=== PATIENT | male | born 1980 | race Caucasian/White ===

== ENCOUNTER → 2019-07-12 | Outpatient (CLI) | payer OTHER ==
--- NOTE | 2019-07-12 11:04 | Diagnostic Imaging Report ---
EXAMINATION: CHEST (PA AND LATERAL). CLINICAL INDICATION: 39-year-old male, difficulty breathing. COMPARISON: None. FINDINGS: The heart size and mediastinal contours are unremarkable. There is no identified pneumothorax. There is no pleural effusion. There is no identified focal airspace consolidation. IMPRESSION: No identified acute cardiopulmonary abnormality. Dictated by: Dictated on workstation # [id number]
== END ==
LOC: RAD 10:44
PROVIDERS: ATTEND Nurse Practitioner Family
DX: G47.33 Obstructive sleep apnea (adult) (pediatric) (principal); J45.909 Unspecified asthma, uncomplicated
CPT/HCPCS: 71046

== ENCOUNTER → 2019-07-28 | Outpatient (CLI) | payer OTHER ==
[~2019-07-28] MED LIST: METHACHOLINE CHLORIDE 100MG/VIAL IH ONE; RT-ALBUTEROL SULF 2.5 MG/3 ML PRE-MIX VIAL INH ONE
== END ==
LOC: EDUNIT# 06-23 11:56 → RT 13:56
DX: R06.00 Dyspnea, unspecified (principal)
CPT/HCPCS: 94070; 95070

== ENCOUNTER 2019-11-08 21:18 | Emergency (ER) | payer OTHER, BC ==
[~2019-11-08] VITALS: Ht 180.3 cm; Wt 97.5 kg
--- OUTSIDE RECORDS SUMMARY | 2019-11-08 21:23 | XMS REPORT ---
Author Author Jaspreet RICO Organization [facility] Address [address] [place] [address] Care Team Providers Care Infection Control Preventionist Name Role Phone BRET RICO Unavailable PROBLEMS Type Condition ICD9-CM Code AUB44-EX Code Onset Dates Condition S tatus SNOMED Code Problem Mild intermittent asthma with exacerbation J45.21 Active [id number] ALLERGIES No Known Allergies ENCOUNTERS Encounter Location Date Diagnosis [facility] [address] [place] [address] Sep, Mild intermittent asthma with exacerbati on J45.21 [facility] [id number] [place] [phone] Jun, [facility] [address] [facility] [id number] [place] [phone] Feb, [place] [address] [place] [id number] [place] [phone] Dec, IMMUNIZATIONS Vaccine Route Administration Date Status SOLUMEDROL (UP TO 125 MG) IM Intramuscular September 18, 2018 Admin istered SOCIAL HISTORY Never Assessed REASON FOR VISIT coughing, Sinus congestion, wheezing ...elamfu/ma PLAN OF CARE Activity Details Follow Up prn Reason: Future/Pending Procedure NEB/MDI RX INITIAL Future/Pending Procedure NEBULIZER TREATMENT VITAL SIGNS Height 70 in 2018-09-18 Weight 210 lbs 2018-09-18 Temperature 98.7 degrees Fahrenheit 2018-09-18 Heart Rate 64 bpm 2018-09-18 Respiratory Rate 20 2018-09-18 Oximetry 94 % 2018-09-18 BMI 30.13 kg/m2 2018-09-18 Blood pressure systolic 108 mmHg 2018-09-18 Blood pressure diastolic 62 mmHg 2018-09-18 MEDICATIONS Medication Instructions Dosage Frequency Start Date End Date Duration S tatus Ibuprofen 600 MG Active Acetaminophen-Codeine #2 300-15 MG Active Pantoprazole Sodium 20 MG Active DuoNeb Sep, Active Topiramate 50 MG Active Albuterol Sulfate HFA 108 (90 Base) MCG/ACT Inhalation every 6 hrs 2 puffs as needed 6h Active Cetirizine HCl 10 MG Act didier Duloxetine HCl 60 MG Act didier Fluticasone Propionate 50 MCG/ACT Active Vitamin D3 3000 UNIT Act didier Magnesium Oxide 400 (241.3 Mg) MG Active RESULTS No Results PROCEDURES Procedure Date Ordered Result Body Site THER/PROPH/DIAG INJ, SC/IM September 18, 2018 SOLUMEDROL (UP TO 125 MG) September 18, 2018 NEB/MDI RX INITIAL September 18, 2018 INSTRUCTIONS MEDICATIONS ADMINISTERED No Known Medications MEDICAL (GENERAL) HISTORY Type Description Date Medical History asthma Surgical History wisdom teeth extraction Surgical History tonsillectomy and adenoidectomy Surgical History appendectomy Surgical History rhinoplasty x3 Hospitalization History see surgeries
--- OUTSIDE RECORDS SUMMARY | 2019-11-08 21:23 | XMS REPORT | Continuity of Care Document ---
Author Organization Unknown Address Unknown Phone Unavailable Allergies Active Description Code Type Severity Reaction Onset Reported/Identified Relationship to Patient Clinical Status Yes No Known Drug Allergies [id number] Drug Allergy Unknown N/A 07/28/2019 Medications There is no data. Problems Date Dx Coded Attending Type Code Diagnosis Diagnosed By 07/13/2019 LISA AGUIRRE APRN Ot G47.33 OBSTRUCTIVE SLEEP APNEA (ADULT) (PEDIATR 07/13/2019 LISA AGUIRRE APRN Ot J45.909 UNSPECIFIED ASTHMA, UNCOMPLICATED 08/02/2019 DAHIANA YI MD Ot R06.00 DYSPNEA, UNSPECIFIED 08/02/2019 DAHIANA YI MD Ot R06.00 DYSPNEA, UNSPECIFIED 08/04/2019 DAHIANA YI MD Ot R06.00 DYSPNEA, UNSPECIFIED Procedures There is no data. Results There is no data. Encounters ACCT No. Visit Date/Time Discharge Status Pt. Type Provider Facility Loc./Unit Complaint [id number] 07/28/2019 13:56:00 020 23:59:59 [facility] Outpatient DAHIANA YI MD [facility] RT DYSPNEA [id number] 07/12/2019 10:44:00 020 23:59:59 [facility] Outpatient LISA AGUIRRE APRN [facility] RAD [id number] 11/08/2019 21:20:[address] Emergency TERE SANTIAGO DO [facility] ER FS DOG BITE ON LEFT HAND
[2019-11-08 21:27] VITALS: BP 147/91
--- NOTE | 2019-11-08 21:37 | ED Integumentary General ---
General Chief Complaint: Bite-Animal/Human/Insect Stated Complaint: DOG BITE ON LEFT HAND Source: patient Exam Limitations: no limitations History of Present Illness Date Seen by Provider: November 08, 2019 Time Seen by Provider: 21:15 Initial Comments The patient is a pleasant 39-year-old male presents for evaluation of a dog bite to the left hand. He states that he is currently watching a dog for a friend and the dog was outside on a leash barking and when he walked around a corner of the house the dog appeared to be scared and bit him on the hand. The dog is from a breeder and is up-to-date with immunizations and had been behaving normally. The patient is in the and is up-to-date with immunizations, stating that he received immunizations in July including tetanus. He has some difficulty/pain when trying to bend the left index finger but is able to do so. He has no other complaints at this time. The owners of the dog are currently speaking with the patient on the phone and stated they will self quarantine the dog for 10 days and hurt he spoke with the display card writer. Severity: mild Location: hands (left 2nd finger) Associated Symptoms: denies symptoms Allergies and Home Medications Allergies Coded Allergies: No Known Drug Allergies (Unverified , 07/28/19) Patient Home Medication List Home Medication List Reviewed: Yes Review of Systems Review of Systems Constitutional: no symptoms reported EENTM: no symptoms reported Respiratory: no symptoms reported Cardiovascular: no symptoms reported Gastrointestinal: no symptoms reported Genitourinary: no symptoms reported Musculoskeletal: other (dog bite to left hand) Skin: other (dog bite to left hand) Psychiatric/Neurological: No Symptoms Reported Endocrine: No Symptoms Reported Hematologic/Lymphatic: No Symptoms Reported All Other Systems Reviewed Negative Unless Noted: Yes Past Znddfik-Avwhqj-Edyruc Hx Past Med/Social Hx: Reviewed Nursing Past Med/Soc Hx Patient Social History Recent Foreign Travel: No Contact w/Someone Who Travel: No Physical Exam Vital Signs Capillary Refill : General Appearance: WD/WN, no apparent distress HEENT: PERRL/EOMI, normal ENT inspection Cardiovascular: regular rate, rhythm, no edema, no JVD Respiratory: lungs clear, normal breath sounds, no respiratory distress, no accessory muscle use Extremities: other (left hand with three small puncture wounds consistent with stated dog bite, one to webbing between 2nd and 3rd digits, one to medial/flexor surface of proximal phalynx, and one to extensor surface of proximal phalynx, no active bleeding, mild swelling) Neurologic/Psychiatric: neuropsychologist II-XII nml as tested, no motor/sensory deficits, alert, normal mood/affect, oriented x 3 Skin: normal color, warm/dry Progress/Results/Core Measures Progress Progress Note : Progress Note @2140 - patient declines imaging stating that he does not believe his fingers broken. He is up-to-date with tetanus. The dog is thought to be up-to-date with rabies and as a precaution is going to be quarantined for 10 days. The dog has been behaving normally and was startled tonight. The patient will go home with a prescription for antibiotics and has been advised to follow-up with the orthopedic physician provided if he has difficulty fully flexing and extending the left second digit. The patient expresses verbal understanding and agreement with the plan and is stable for discharge. Departure Impression Primary Impression: Dog bite Disposition: 01 HOME, SELF-CARE Condition: Stable Departure-Patient Inst. Decision time for Depature: 21:48 Referrals: TERRY MARK MD (PCP/Family) Primary Care Physician Patient Instructions: Animal Bites (DC) Add. Discharge Instructions: Apply Neosporin or similar antibiotic topically twice daily to your wounds. Take the prescribed antibiotic as directed. If he continued to have pain and/or problems fully bending your finger is important that you follow-up with orthopedics within the next week. Return to the emergency department immediately for new or worsening symptoms. Scripts Amoxicillin/Potassium Clav (Augmentin 875-125 Tablet) 1 Each Tablet 1 EACH PO BID for 10 Days, #20 TAB 0 Refills Prov: JACK CARRANZA DO 11/08/19 JACK CARRANZA DO November 08, 2019 21:37
[2019-11-08] MEDS ORDERED: AMOX-358 PO (21:50)
== END 2019-11-08 22:02 | disposition home or self-care (01) ==
LOC: EDUNIT# 21:18 → ER FS 21:20
DX: S61.432A Puncture wound without foreign body of left hand, initial encounter (principal); W54.0XXA Bitten by dog, initial encounter

== ENCOUNTER 2022-08-02 17:09 | Emergency (ER) | payer BC, OTHER ==
[~2022-08-02 17:09] MED LIST changes: +AMOX-358 PO; -METHACHOLINE CHLORIDE 100MG/VIAL IH ONE; -RT-ALBUTEROL SULF 2.5 MG/3 ML PRE-MIX VIAL INH ONE
[2022-08-02] MEDS ORDERED: NS IV 1000 ML 1,000 ML IV STA ×2 (17:23→18:19)
[2022-08-02] MEDS ORDERED: RT-ALBUTEROL/IPRATROPIUM 3 ML (DUONEB) VIAL INH STA (17:23)
[2022-08-02] MEDS ORDERED: ONDANSETRON 4 MG/2 ML (SDV) Z0FRAN IVP STA (17:26)
[2022-08-02 17:28] LABS: BASOPHILS # (AUTO) 0.1 10^3/uL (0.0-0.1); BASOPHILS % (AUTO) 1 % (0-10); EOSINOPHILS # (AUTO) 0.5 10^3/uL (0.0-0.3); EOSINOPHILS % (AUTO) 3 % (0-10); HEMATOCRIT 44 % (40-54); HEMOGLOBIN 15.8 g/dL (13.3-17.7); LYMPHOCYTES # (AUTO) 3.6 10^3/uL (1.0-4.0); LYMPHOCYTES % (AUTO) 22 % (12-44); MEAN CORPUSCULAR HEMOGLOBIN 32 pg (25-34); MEAN CORPUSCULAR HGB CONC 36 g/dL (32-36); MEAN CORPUSCULAR VOLUME 89 fL (80-99); MONOCYTES # (AUTO) 1.4 10^3/uL (0.0-1.0); MONOCYTES % (AUTO) 9 % (0-12); NEUTROPHILS # (AUTO) 10.6 10^3/uL (1.8-7.8); NEUTROPHILS % (AUTO) 65 % (42-75); PLATELET COUNT 269 10^3/uL (130-400); WHITE BLOOD COUNT 16.3 10^3/uL (4.3-11.0)
--- NOTE | 2022-08-02 17:35 | Diagnostic Imaging Report ---
INDICATION: cough, short of breath x 2 days. TECHNIQUE: Single view chest 5:24 PM. CORRELATION STUDY: 07/12/2019 FINDINGS: The heart size, mediastinal configuration and pulmonary vascularity are within normal limits. The lungs are clear with no consolidating infiltrate. There is no significant effusion or pneumothorax. IMPRESSION: 1. Negative appearing single view chest. Dictated by: Dictated on workstation # [id number]
[2022-08-02 17:51] LABS: ALBUMIN 4.5 GM/DL (3.2-4.5); BILIRUBIN,TOTAL 0.5 MG/DL (0.1-1.0); CALCIUM 9.8 MG/DL (8.5-10.1); CREATININE SERUM 1.07 MG/DL (0.60-1.30)
--- NOTE | 2022-08-02 17:52 | ED Cough/URI ---
General Chief Complaint: Respiratory Problems Stated Complaint: SOB; ELEV HR & BP Nursing Triage Note: Patient presents to the ED with c/o shortness of breath, elevated heart rate, and cough. Family report patient has had decreased appetite, cough, sore throat, and shortness of breath for the past 2 days. Was seen at [facility] prior to arriving at the ED and prescribed steriod and antibiotic. Came to the ED due to feeling like his "throat was closing up and shortness of breath." His reports heart rate in the 130s and elevated blood pressure. Source: patient, spouse (Independent historian for patient as he has TBI and memory issues as well as short of breath with cough that makes it hard to obtain history and information from him. ) History of Present Illness Date Seen by Provider: Aug 02, 2022 Time Seen by Provider: 17:12 Initial Comments 42-year-old male presenting with his to the emergency department. Most of the history obtained from the as an independent historian as the patient was complaining of being too short of breath as well as having memory issues from traumatic brain injury to be able to consistently answer questions. He has been having increased cough with shortness of breath, sore throat, decreased appetite, fast heart rate, high blood pressure in the last 2 days. All the family members at home have been sick and has had some form of viral illness. He does have a history of asthma and restrictive airway disease from being exposed to inhalants while in the . He has PTSD as well as traumatic brain injury, asthma, recurrent ear infections. He has had a low-grade temperature but not been able to keep any Tylenol or ibuprofen down to help with that. He was seen at the urgent care this afternoon and they had prescribed steroid and an antibiotic but he has not received any of those as he felt worse after getting home. However he was feeling worse after he got home and continued to vomit and complained that he felt like his throat was closing up with the shortness of breath so they rushed to the emergency department to be seen. He follows with [facility] but has not been able to get a local [facility] provider to help manage his care since he moved to the area from . Timing/Duration: yesterday, getting worse Severity/Quality: severe, dry cough Prior Episodes/Possible Cause: frequent episodes, chronic episodes Modifying Factors: Worse With Activity, Worse With Coughing Associated Symptoms: cough, earache, fever/chills, headache, lightheadedness, muscle aches, nasal congestion, nasal drainage, shortness of breath, sore throat, wheezing Allergies and Home Medications Allergies Coded Allergies: No Known Drug Allergies (Unverified , 07/28/19) Patient Home Medication List Home Medication List Reviewed: Yes Amoxicillin/Potassium Clav (Augmentin 875-125 Tablet) 1 Each Tablet, 1 EACH PO BID Prescribed by: JACK CARRANZA on 11/08/192149 Benzonatate (Benzonatate) 200 Mg Capsule, 200 MG PO TID PRN for COUGH Prescribed by: INDIO SKY on 08/02/221951 Ondansetron (Ondansetron Odt) 4 Mg Tab.rapdis, 4 MG PO Q6H PRN for NAUSEA/VOMITING Prescribed by: INDIO SKY on 08/02/221951 Review of Systems Review of Systems Constitutional: see HPI EENTM: see HPI Respiratory: see HPI Cardiovascular: see HPI, palpitations Gastrointestinal: see HPI, nausea, vomiting Genitourinary: No dysuria Musculoskeletal: muscle pain (generalized body aches) Skin: No rash Psychiatric/Neurological: Headache Past Hypgdts-Zucwus-Yjjixx Hx Patient Social History Tobacco Use?: No Use of E-Cig and/or Vaping dev: No Substance use?: No Alcohol Use?: No Pt feels they are or have been: No Immunizations Up To Date Influenza Vaccine Up-to-Date: Yes; Up-to-Date First/Initial COVID19 Vaccinat: DENIES Seasonal Allergies Seasonal Allergies: No Past Medical History Surgery/Hospitalization HX: COPD; TBI; PTSD; Spinal Fx; Arthitis; DDD; Retracted ear drums; Memory problems; Cyst removal; BMT; Appy; Rhinoplasty Surgeries: Yes (NOSE X3 FROM FX, WISDOM TEETH, CYST REMOVALS) Appendectomy, Tonsillectomy, Vasectomy Respiratory: Yes Asthma Cardiac: No Neurological: Yes (IED EXPLOSION) Traumatic Brain Injury Genitourinary: No Gastrointestinal: No Musculoskeletal: Yes Degenerate Disk Disease, Back Injury Endocrine: No Hearing Impairment: Hard of Hearing Cancer: No Psychosocial: Yes Anxiety, PTSD Integumentary: No Blood Disorders: No Physical Exam Vital Signs - First Documented 08/02/22 08/02/22 17:27 19:49 Temp 38.1 Pulse 120 Resp 16 B/P (MAP) 131/66 (87) Pulse Ox 96 O2 Delivery Room Air Capillary Refill : Less Than 3 Seconds Height: '" Weight: lbs. oz. kg; 29.00 BMI Method: General Appearance: WD/WN, no apparent distress HEENT: PERRL/EOMI; No photophobia; pharyngeal erythema; No tonsillar exudate; other (erythema and scarring with retraction of TM bilaterally) Neck: non-tender, full range of motion, supple, lymphadenopathy (R), lymphadenopathy (L) Respiratory: no respiratory distress, no accessory muscle use, decreased breath sounds; No rales, No rhonchi; wheezing (faint end expiratory wheezing) Cardiovascular: normal peripheral pulses, tachycardia Gastrointestinal: normal bowel sounds, non tender, soft, no pulsatile mass Extremities: normal range of motion, non-tender, no calf tenderness, normal capillary refill Neurologic/Psychiatric: alert, oriented x 3 Skin: normal color, warm/dry Focused Exam Lactate Level 08/02/22 17:20: Lactic Acid Level 1.32 Lactic Acid Level Laboratory Tests Test 08/02/22 17:20 Lactic Acid Level 1.32 MMOL/L (0.50-2.00) Progress/Results/Core Measures Suspected Sepsis SIRS Temperature: Pulse: 120 Respiratory Rate: 16 Laboratory Tests 08/02/22 17:20: White Blood Count 16.3H Blood Pressure 131 /66 Mean: 87 08/02/22 17:20: Lactic Acid Level 1.32 Laboratory Tests 08/02/22 17:20: Creatinine 1.07, Platelet Count 269, Total Bilirubin 0.5 Results/Orders Lab Results Laboratory Tests Test 08/02/22 17:20 08/02/22 17:32 Range/Units White Blood Count 16.3 H 4.3-11.0 10^3/uL Red Blood Count 4.91 4.30-5.52 10^6/uL Hemoglobin 15.8 13.3-17.7 g/dL Hematocrit 44 40-54 % Mean Corpuscular Volume 89 80-99 fL Mean Corpuscular Hemoglobin 32 25-34 pg Mean Corpuscular Hemoglobin Concent 36 32-36 g/dL Red Cell Distribution Width 12.0 10.0-14.5 % Platelet Count 269 130-400 10^3/uL Mean Platelet Volume 11.0 9.0-12.2 fL Immature Granulocyte % (Auto) 1 % Neutrophils (%) (Auto) 65 42-75 % Lymphocytes (%) (Auto) 22 12-44 % Monocytes (%) (Auto) 9 0-12 % Eosinophils (%) (Auto) 3 0-10 % Basophils (%) (Auto) 1 0-10 % Neutrophils # (Auto) 10.6 H 1.8-7.8 10^3/uL Lymphocytes # (Auto) 3.6 1.0-4.0 10^3/uL Monocytes # (Auto) 1.4 H 0.0-1.0 10^3/uL Eosinophils # (Auto) 0.5 H 0.0-0.3 10^3/uL Basophils # (Auto) 0.1 0.0-0.1 10^3/uL Immature Granulocyte # (Auto) 0.1 0.0-0.1 10^3/uL Sodium Level 139 135-145 MMOL/L Potassium Level 4.0 3.6-5.0 MMOL/L Chloride Level 102 98-107 MMOL/L Carbon Dioxide Level 22 21-32 MMOL/L Anion Gap 15 H 5-14 MMOL/L Blood Urea Nitrogen 11 7-18 MG/DL Creatinine 1.07 0.60-1.30 MG/DL Estimat Glomerular Filtration Rate 89 BUN/Creatinine Ratio 10 Glucose Level 130 H 70-105 MG/DL Lactic Acid Level 1.32 0.50-2.00 MMOL/L Calcium Level 9.8 8.5-10.1 MG/DL Corrected Calcium 9.4 8.5-10.1 MG/DL Total Bilirubin 0.5 0.1-1.0 MG/DL Aspartate Amino Transf (AST/SGOT) 25 5-34 U/L Alanine Aminotransferase (ALT/SGPT) 34 0-55 U/L Alkaline Phosphatase 113 40-136 U/L C-Reactive Protein 8.27 H <0.50 MG/DL Total Protein 8.0 6.4-8.2 GM/DL Albumin 4.5 3.2-4.5 GM/DL Influenza Type A (RT-PCR) Not Detected Not Detecte Influenza Type B (RT-PCR) Not Detected Not Detecte SARS-CoV-2 RNA (RT-PCR) Not Detected Not Detecte Group A Streptococcus Screen NEGATIVE NEGATIVE My Orders Orders - INDIO SKY MD Cbc With Automated Diff (08/02/22 17:21) Comprehensive Metabolic Panel (08/02/22 17:21) Blood Culture (08/02/22 17:21) Chest 1 View Ap/Pa Only (08/02/22 17:21) Ekg Tracing (08/02/22 17:21) O2 (08/02/22 17:21) Ed Iv/Invasive Line Start (08/02/22 17:21) Sputum Culture (08/02/22 17:21) Monitor-Rhythm Ecg Trace Only (08/02/22 17:21) Crp Fs (08/02/22 17:21) Lactic Acid Analyzer (08/02/22 17:21) Covid 19 Inhouse Test (08/02/22 17:21) Rapid Strep A Screen (08/02/22 17:21) Influenza A And B By Pcr (08/02/22 17:21) Isolation Central Supply Req (08/02/22 17:21) Ns Iv 1000 Ml (Sodium Chloride 0.9%) (08/02/22 17:23) Dexamethasone Injection (Decadron Inje (08/02/22 17:23) Albuterol/Ipra Inhalation Soln (Duoneb I (08/02/22 17:23) Svn Small Volume Nebulizer (08/02/22 17:23) Ondansetron Injection (Zofran Injectio (08/02/22 17:26) Manual Differential (08/02/22 17:20) Ns Iv 1000 Ml (Sodium Chloride 0.9%) (08/02/22 18:19) Acetaminophen Tablet/Caplet (Tylenol T (08/02/22 18:19) Ceftriaxone 1 Gm Pre-Mix (Rocephin 1 Gm (08/02/22 18:19) Azithromycin Injection (Zithromax Inject (08/02/22 18:19) Benzonatate Capsule (Tessalon Perles) (08/02/22 18:21) Methylprednisolone Acetate Inj (Depo-Med (08/02/22 18:31) Albuterol Pre-Mix Nebs (Rt) (Proventil (08/02/22 18:31) Svn Small Volume Nebulizer (08/02/22 18:31) Promethazine Injection (Phenergan Injec (08/02/22 18:34) Rx-Ondansetron Po (Rx-Zofran Po) (08/02/22 19:45) Medications Given in ED Current Medications Medications Dose Ordered Sig/Earle Route Start Time Stop Time Status Last Admin Dose Admin Ondansetron HCl 4 mg Q6H PRN PO 08/02/22 19:45 08/02/22 19:48 4 MG Vital Signs/I&O 08/02/22 08/02/22 08/02/22 17:27 18:30 19:49 Temp 38.1 38.1 Pulse 120 124 Resp 16 14 B/P (MAP) 131/66 (87) 118/72 Pulse Ox 96 94 O2 Delivery Room Air Capillary Refill : Less Than 3 Seconds Blood Pressure Mean: 87 Progress Note #1: Progress Note Potential life-threatening diagnosis of pneumonia, sepsis, severe asthma exacerbation, COVID, influenza. Obtain labs including CBC, chemistry, lactic acid, blood cultures, CRP, nasal swab for flu and COVID, throat swab for strep, chest x-ray to look for signs of infiltrate or pneumonia. Electrocardiogram to look for acute ischemic changes or arrhythmia. Placed on cardiac engine monitor since he was tachycardic with a heart rate in the 110s. This showed a normal sinus rhythm in of tachycardia with heart rate 112. His temperature was 38.1. Since he had been complaining of nausea and vomiting along with a cough we will give normal saline 1 L IV fluid bolus for hydration, Decadron 10 mg IV for throat swelling body aches as well as asthma exacerbation. Zofran 4 mg IV for nausea and vomiting. If his stomach settles we could try giving him some Tylenol to help with his temperature. Try a DuoNeb breathing treatment to help with his cough and shortness of breath. On my independent interpretation and review of his electrocardiogram shows sinus tachycardia with heart rate 117 bpm. PA interval [address] elevation. QT interval 340 ms with a QTc interval 410 ms. He has no prior tracings available for comparison. On my personal interpretation and review of his 1 view chest x-ray he has no acute infiltrate or effusion. He does not have a prior chest x-ray in the system for comparison. Progress Note #2: Time: 18:30 Progress Note Updated patient about lab and x-ray. His CBC did have an elevated white blood cell count of 16.3 with a left shift that could indicate stress, infection, dehydration. He had stable electrolytes on his chemistry panel without acute significant abnormality. His lactic acid was normal at 1.32. His CRP was elevated to 8.27 to go with inflammation and infection. ECG shows fast heart rate but not a heart attack. He has black nail samoan on his fingernails so the O2 probe was moved to his forehead and was reading better for his O2 sats up to 100% at times on room air. He had no definite acute infiltrate on his chest x- ray. Swabs for COVID, influenza, and strep were all negative. His heart rate was down to 105 - 112 sinus tachycardia on his cardiac engine monitor after his initial bolus of IV fluids. With him not showing signs of sepsis, severe infiltrate, effusion, mass in his lungs and oxygen levels improved as well as heart rate was improving will try to give him an oral dose of Tylenol as well as Tessalon Perles to see if it would help with his temperature and cough. We will administer a long-acting steroid, Depo-Medrol 80 mg, IM to help with his asthma and cough. This will help avoid him having to try and keep something down by mouth for an anti-inflammatory/steroid. We will add a second liter of normal saline 1 L IV fluid bolus for hydration to see if his heart rate would continue to improve. His blood pressures have been stable the entire time in the 120s to 130s systolic. Ordered dose of Rocephin and Zithromax IV to help with his cough and infection. If there is a bacterial source this should help. Since he felt like he still needed something more for nausea after the Zofran we will try a dose of Phenergan to see if that might also give some antihistamine effect to help with his cough and congestion. Order a second breathing treatment with albuterol 2.5 mg nebulized. Progress Note #3: Time: 19:30 Progress Note His breathing was doing better and he was moving more air with respirations now. Cough has lessened with treatment here in the ED. His heart rate has been coming down but the repeated breathing treatment did cause some tachycardia. He feels like he is swallowing easier. He has taken Tylenol and kept it down w ithout any vomiting here in the ED. His antibiotics are almost done as well as a second liter of fluid. Counseled to continue taking the antibiotics that were prescribed today through the urgent care. He would not have to take the steroids since he was given a long-acting Depo-Medrol that should help over the next 7 to 10 days. However if he felt like the wheezing was getting worse or swelling in his throat again he could start taking the steroid that was prescribed from urgent care. Try to keep sipping on fluids and be better hydrated. Try to rest and let your body heal. Counseled that he could use [id number] Mucinex or guaifenesin to help loosen and thin out cough. Sent prescription for Tessalon pearls to the apothecary as well as Zofran dissolving tablets. He was given a take-home pack of Zofran 4 mg tablets from here to take 1 every 6 hours as needed for nausea and vomiting so he had something to help overnight. Follow-up through the clinic or return if having worsening symptoms. He could still do [id number] Tylenol and ibuprofen to help with fever and body aches. Use a humidifier or vaporizer at the bedside when sleeping to help keep his throat moist. ECG Initial ECG Impression Date: Aug 02, 2022 Initial ECG Impression Time: 17:18 Initial ECG Rate: 117 Initial ECG Rhythm: S.Tach Initial ECG Comparisson: No Previous ECG Available Comment On my independent interpretation and review of his electrocardiogram shows sinus tachycardia with heart rate 117 bpm. PA interval [address] elevation. QT interval 340 ms with a QTc interval 410 ms. He has no prior tracings available for comparison. Diagnostic Imaging Diagonstic Imaging: Xray Plain Films/CT/US/NM/MRI: chest Comments [facility], [place] NAME: CASTILLO [facility] REC#: [id number] PT STATUS: REG ER : 1980 PHYSICIAN: INDIO SKY MD ADMIT DATE: 08/02/22/ER FS Draft Date of Exam:08/02/22 CHEST 1 VIEW AP/PA ONLY INDICATION: cough, short of breath x 2 days. TECHNIQUE: Single view chest 5:24 PM. CORRELATION STUDY: 07/12/2019 FINDINGS: The heart size, mediastinal configuration and pulmonary vascularity are within normal limits. The lungs are clear with no consolidating infiltrate. There is no significant effusion or pneumothorax. IMPRESSION: 1. Negative appearing single view chest. Dictated on workstation # [id number] Dict: 08/02/22 1734 Trans: 08/02/22 173 DO [id number] Interpreted by: GIANA HILL DO Electronically signed by: Reviewed: Reviewed by Me Departure Impression Primary Impression: Shortness of breath Additional Impressions: Fever in adult Pharyngitis Qualified Codes: J02.9 - Acute pharyngitis, unspecified Upper respiratory infection with cough and congestion Asthma exacerbation Qualified Codes: J45.41 - Moderate persistent asthma with (acute) exacerbation Disposition: HOME, SELF-CARE Condition: Improved Departure-Patient Inst. Decision time for Depature: 19:45 Referrals: TERRY MARK MD (PCP/Family) Primary Care Physician Patient Instructions: How to Use a Metered Dose Inhaler ED, Upper Respiratory Infection ED, Fever, Adult ED, Shortness of Breath, Adult ED, Cough, Adult ED Add. Discharge Instructions: Continue taking your antibiotic from Urgent Care and use your inhalers. The dissolving nausea medicine will help keep your stomach more settled and you can keep sipping on fluids to help with hydration. Use the tessalon perles (Benzonatate) to help with cough. Mucinex or Guaifenesin will help loosen your cough and congestion to make it easier to get up any mucus so it is not so thick. To work the best you need to drink plenty of fluids with the medicine. The steroid shots you got here in the ER will help with inflammation and wheezing with your lungs. It should help with swelling in your throat as well. If you felt like the wheezing was getting worse instead of better you could take the oral steroids prescribed by Urgent Care. Otherwise the shots you got tonight should be all the steroid that you need right now. Consider using a humidifier or vaporizer at the bedside to help with congestion and throat pain. This can help keep your throat from getting dried out overnight. Try to rest and take it easy so your body can heal and recover from the infection and flare up of your asthma. Check back with clinic for continued problems or if worsening despite the medicine you could always return to be re-evaluated here in the ER All discharge instructions reviewed with patient and/or family. Voiced understanding. Scripts Ondansetron (Ondansetron Odt) 4 Mg Tab.rapdis 4 MG PO Q6H PRN for NAUSEA/VOMITING for 5 Days, #20 TAB 0 Refills Prov: INDIO SKY MD 08/02/22 Benzonatate (Benzonatate) 200 Mg Capsule 200 MG PO TID PRN for COUGH for 7 Days, #21 CAP 0 Refills Prov: INDIO SKY MD 08/02/22 INDIO SKY MD Aug 02, 2022 17:52
[2022-08-02] MEDS ORDERED: cefTRIAXone 1 GM PRE-MIX 50 ML IV STA (18:19)
[2022-08-02] MEDS ORDERED: ACETAMINOPHEN 325 MG TABLET PO STA (18:19)
[2022-08-02] MEDS ORDERED: AZITHROMYCIN INJECTION 500 MG in NS (IVPB) 250 ML IV STA (18:19)
[2022-08-02] MEDS ORDERED: BENZONATATE 100 MG (TESSALON) CAPSULE PO STA (18:21)
[2022-08-02] MEDS ORDERED: RT-ALBUTEROL SULF 2.5 MG/3 ML PRE-MIX VIAL INH STA (18:31)
[2022-08-02] MEDS ORDERED: methylPREDNISolone 80 MG/ML (DEPO MEDROL) VIAL IM STA (18:31)
[2022-08-02] MEDS ORDERED: PROMETHAZINE INJ 25 MG/ML (PHENERGAN) AMP IVP STA (18:34)
[2022-08-02] MEDS ORDERED: RX-ONDANSETRON 4 MG ODT (ZOFRAN) PPK #4 PO PRN (19:45)
[2022-08-02 19:49] VITALS: BP 118/72
[2022-08-02] MEDS ORDERED: BENZ200C51 PO (19:52)
[2022-08-02] MEDS ORDERED: ONDA4TAB11 PO (19:52)
[2022-08-02 20:51] LABS: EOSINOPHILS % (MANUAL) 1 %; LYMPHOCYTES % (MANUAL) 25 %; MONOCYTES % (MANUAL) 5 %; NEUTROPHILS % (MANUAL) 69 %
== END 2022-08-02 19:59 | disposition home or self-care (01) ==
LOC: EDUNIT# 17:09 → ER FS 17:10
DX: J45.901 Unspecified asthma with (acute) exacerbation (principal); J06.9 Acute upper respiratory infection, unspecified; R00.0 Tachycardia, unspecified; R11.2 Nausea with vomiting, unspecified; Z20.822 Contact with and (suspected) exposure to COVID-19; Z28.310 Unvaccinated for COVID-19
CPT/HCPCS: 36415; 71045; 80053; 83605; 85007; 85027; 86141; 87040; 87070; 87205; 87430; 87636; 93005; 93041; 94640

== ENCOUNTER → 2022-08-08 | Outpatient (CLI) | payer OTHER ==
[~2022-08-08] MED LIST changes: +BENZ200C51 PO; +ONDA4TAB11 PO
--- NOTE | 2022-08-08 16:48 | Diagnostic Imaging Report ---
INDICATION: Right shoulder pain AP, oblique, and transscapular views of the right shoulder are obtained. No fracture or acute bony abnormality is seen. There is a chronic calcification within the AC joint. There is no significant degenerative change of the glenohumeral joint. IMPRESSION: No acute abnormality of the right shoulder. Dictated by: Dictated on workstation # [id number]
--- NOTE | 2022-08-08 17:48 | Diagnostic Imaging Report ---
INDICATION: Concussive injury, remote. FINDINGS: Frontal and lateral cervical radiographs showed normal cervical statures aligned anatomically. No fracture. There are degenerative changes greatest at C5-C6, chronic. IMPRESSION: Lower cervical spondylosis, normal alignment. No acute abnormality identified. Dictated by: Dictated on workstation # [id number]
== END ==
LOC: RAD FS 09:25
DX: M47.812 Spondylosis without myelopathy or radiculopathy, cervical region (principal); S14.0XXA Concussion and edema of cervical spinal cord, initial encounter
CPT/HCPCS: 72040; 73030